=== PATIENT | male | born 1970 | race Caucasian/White ===

== ENCOUNTER → 2021-03-25 01:29 | Outpatient (CLI) | payer OTHER, SELFPAY ==
[2021-03-26 14:42] LABS: SARS-CoV-2 RNA PCR Negative
== END ==
PROVIDERS: PCP Internal Medicine; Visit Provider Internal Medicine Gastroenterology
DX: Z01.812 Encounter for preprocedural laboratory examination (principal); Z20.822 Contact with and (suspected) exposure to COVID-19
CPT/HCPCS: C9803; U0003; U0005

== ENCOUNTER 2021-03-28 01:57 | Day surgery (SDC) | payer OTHER, SELFPAY ==
[2021-03-14 14:57] VITALS: BMI 28.6
--- NOTE | 2021-03-28 08:27 | WPDANESEPPF ---
Anes - Initial Pre Proc Eval Procedure: Operation Date: 03/28/21 10:30 Proposed Procedures p Screening Colonoscopy - John Torres MD Date/Time: 03/28/21 08:27 Surgeon: John Torres MD Pre Op Diagnosis: neoplasm screening Patient Data Age: 50 Gender: M Height: 1.75 m Weight: 88 kg Allergies Allergy/AdvReac Type Severity Reaction Status Date / Time Penicillins Allergy Unknown When he Verified 03/28/21 09:02 little ENVIRONMENTAL ALLERGENS Allergy Unknown Uncoded 03/28/21 09:02 Home Medications Medication Instructions Recorded Confirmed Type loratadine-pseudoephedrine ER 10 1 tablet PO DAILY 11/15/19 03/28/21 History mg-240 mg tablet,extended [id number] cholecalciferol (vitamin D3) 1,250 50,000 unit PO WEEKLY #14 cap 03/27/21 03/28/21 Rx mcg (50,000 unit) capsule Patient hx anesthesia problems: none Family hx anesthesia problems: none PMFSH Past Medical History Medical History (Updated 03/28/21 @ 08:28 by Rakesh Hernandez MD) Dyslipidemia Overweight (BMI 25.0-29.9) Family History Family History (Updated 09/16/17 @ 15:07 by DOCTOR UNKNOWN) Father Family history of diabetes mellitus in first degree relative Mother Family history of diabetes mellitus in first degree relative Other Diabetes mellitus Family history of Alzheimer's disease Family history of glaucoma Family history of hearing loss Family history of kidney disease Family history of malignant neoplasm Hypertension Social History Social History (Updated 03/06/21 @ 10:01 by Nay Man MA) Smoking status: Never smoker Second hand tobacco smoke exposure: Yes Alcohol intake: current Drinks per week: 3 Substance use: never Substance use type: does not use Living arrangements: with family Spiritual care concerns: No Anes - Eval Final PreProcedure Day of Procedure 03/28/21 08:27 Patient weight: overweight Heart: regular rate and rhythm Lungs: clear to auscultation and normal air movement Airway: Mallampati scale class II Neurological: alert and oriented Last oral intake: >/= 8 hours ASA classification: II Emergent: no Anesthetic plan: proceed Anesthesia type and monitoring: general GIVS Informed Consent: The patient's anesthetic plan and its attendant risks and benefits were discussed with the patient/family/POA. Questions were solicited and answers provided to the satisfaction of the patient/family/POA.
[2021-03-28 09:04] VITALS: BP 121/99; PULSE 76; RESP 16; TEMP 35.8; O2SAT 99; BMI 28.8
[2021-03-28] MEDS: LACTATED RINGERS 1,000 ML 150 ML IV CONT (09:08)
--- NOTE | 2021-03-28 09:48 | PM.HPGS ---
History of Present Illness History of Present Illness Consent: Risks, benefits, and alternatives have been discussed and questions answered. Patient agrees to proceed with procedure. Chief complaint: neoplasm screening Narrative: Dru Ruff is a 50 year old male referred for colon cancer screening. Review of Systems Review of Systems: All systems reviewed & are unremarkable except as noted in HPI and below PMFSH Past Medical History Medical History Dyslipidemia Overweight (BMI 25.0-29.9) Family History Family History Father Family history of diabetes mellitus in first degree relative Mother Family history of diabetes mellitus in first degree relative Other Diabetes mellitus Family history of Alzheimer's disease Family history of glaucoma Family history of hearing loss Family history of kidney disease Family history of malignant neoplasm Hypertension Social History Social History Smoking status: Never smoker Second hand tobacco smoke exposure: Yes Alcohol intake: current Drinks per week: 3 Substance use: never Substance use type: does not use Living arrangements: with family Spiritual care concerns: No Meds Home Medications and Allergies Home Medications Medication Instructions Recorded Confirmed Type loratadine-pseudoephedrine ER 10 1 tablet PO DAILY 11/15/19 03/28/21 History mg-240 mg tablet,extended [id number] cholecalciferol (vitamin D3) 1,250 50,000 unit PO WEEKLY #14 cap 03/27/21 03/28/21 Rx mcg (50,000 unit) capsule Allergies Allergy/AdvReac Type Severity Reaction Status Date / Time Penicillins Allergy Unknown When he Verified 03/28/21 09:02 little ENVIRONMENTAL ALLERGENS Allergy Unknown Uncoded 03/28/21 09:02 Vital Signs Vital Signs - 24 hr 03/28/21 09:04 Temperature 35.8 C L Pulse Rate 76 Respiratory Rate 16 Blood Pressure 121/99 H Pulse Oximetry 99 Exam Resp: Auscultation: clear to auscultation bilaterally Cardio: Rate: regular rate Rhythm: regular rhythm GI: GI Palp: Yes Soft to palpation and No Tenderness to palpation present (GI) Assessment and Plan Assessment and plan (1) Colon cancer screening: Code(s): Z12.11 - Encounter for screening for malignant neoplasm of colon Status: Acute
[2021-03-28 10:40] VITALS: BP 101/69; PULSE 64; RESP 17; O2SAT 96
[2021-03-28 10:50] VITALS: BP 116/78; PULSE 65; RESP 18; O2SAT 99
[2021-03-28 11:00] VITALS: BP 120/81; PULSE 60; RESP 16; O2SAT 99
== END 2021-03-28 11:12 | disposition home or self-care (01) ==
PROVIDERS: PCP Internal Medicine; Visit Provider Internal Medicine Gastroenterology
PROC: 0DJD8ZZ Inspection of Lower Intestinal Tract, Via Natural or Artificial Opening Endoscopic (ICD-10-PCS; CPT 45378; principal; 2021-03-28 10:30)
DX: Z12.11 Encounter for screening for malignant neoplasm of colon (principal); K62.1 Rectal polyp; E78.5 Hyperlipidemia, unspecified
CPT/HCPCS: 45380; 88305; C9803; J2704; J7120; U0003; U0005